=== PATIENT | female | born 1970 | race African-American/Black ===

== ENCOUNTER 2016-07-11 12:39 | Emergency (ER) | payer OTHER ==
[~2016-07-11] VITALS: Ht 177.8 cm; Wt 78.0 kg
[~2016-07-11 12:39] MED LIST: DIFLUCAN150 MG PO; FLAGYL500 MG PO; KEFLEX500 MG PO; MOTRIN800 MG PO; NOHOMEMEDS; PEPCID40 MG PO; PREDNISONE50 MG PO; TERAZOL 3 CREAM20 GM VG; Tylenol Regular Stre PO; ZYRTEC10 M2 PO; cholesterol med; diabetes med
[2016-07-11] MEDS ORDERED: MOTRIN600 MG PO (16:09)
[2016-07-11 16:46] VITALS: BP 142/80
== END 2016-07-11 16:47 | disposition home or self-care (01) ==
LOC: EME 12:39 → EXP 12:39
DX: S46.912A Strain of unspecified muscle, fascia and tendon at shoulder and upper arm level, left arm, initial encounter (principal); W00.0XXA Fall on same level due to ice and snow, initial encounter; Y93.01 Activity, walking, marching and hiking; E11.9 Type 2 diabetes mellitus without complications; E78.00 Pure hypercholesterolemia, unspecified
CPT/HCPCS: 73020; 73030; 99281; 99283

== ENCOUNTER → 2017-05-24 | Emergency (ER) | payer OTHER ==
[~2017-05-24] VITALS: Ht 147.3 cm; Wt 75.3 kg
[~2017-05-24] MED LIST changes: +MOTRIN600 MG PO; +NORCO 5/3251 TABLET PO; +VOLTAREN 1% GE100 GM TP
[2017-05-24 16:43] VITALS: BP 129/77
== END | disposition home or self-care (01) ==
LOC: EME 13:48
DX: M25.512 Pain in left shoulder (principal); Z98.890 Other specified postprocedural states
CPT/HCPCS: 73030; 99281; 99284

== ENCOUNTER → 2017-05-29 | Outpatient (CLI) | payer OTHER | END | disposition home or self-care (01) | LOC: CDC 14:28 | DX: Z01.810 Encounter for preprocedural cardiovascular examination (principal); S46.012D Strain of muscle(s) and tendon(s) of the rotator cuff of left shoulder, subsequent encounter; M25.512 Pain in left shoulder; M75.02 Adhesive capsulitis of left shoulder | CPT/HCPCS: 93000 ==

== ENCOUNTER 2018-01-05 13:09 | Emergency (ER) | payer OTHER ==
[~2018-01-05] VITALS: Ht 134.6 cm; Wt 72.7 kg
[2018-01-05 13:59] LABS: HEMATOCRIT 34.3 % (36.0-46.0); HEMOGLOBIN 12.6 G/DL (11.9-15.5); MCH 32.4 PG (29.0-34.0); MCHC 36.7 G/DL (30.0-36.0); MCV 88.2 FL (83-99); PLATELET COUNT 193 K/uL (156-360); RBC DIS.WIDTH-CV 11.9 % (11.8-14.6); RED BLOOD COUNT 3.89 M/uL (3.80-5.20); WHITE BLOOD COUNT 10.6 K/uL (4.1-10.2)
[2018-01-05 14:10] LABS: CHLORIDE 103 mEq/L (99-109); POTASSIUM 3.9 mEq/L (3.7-5.4); SODIUM 133 mEq/L (136-147)
[2018-01-05 14:12] LABS: GLUCOSE 124 mg/dL (70-99)
[2018-01-05 14:16] LABS: CREATININE 0.8 mg/dL (0.6-1.3); GFR ESTIMATE (CALCULATED) > 59 mL/min/
[2018-01-05 14:17] LABS: UREA NITROGEN (BUN) 8 mg/dL (9-23)
[2018-01-05 15:32] VITALS: BP 128/62
== END 2018-01-05 15:34 | disposition home or self-care (01) ==
LOC: EME 13:09
PROVIDERS: Nurse Practitioner Family
DX: E86.0 Dehydration (principal); E11.9 Type 2 diabetes mellitus without complications; E78.5 Hyperlipidemia, unspecified; G43.909 Migraine, unspecified, not intractable, without status migrainosus; Z91.018 Allergy to other foods
CPT/HCPCS: 80048; 85027; 99281; 99284; J7030

== ENCOUNTER 2018-01-30 22:27 | Emergency (ER) | payer OTHER ==
[~2018-01-30] VITALS: Ht 134.6 cm; Wt 73.8 kg
[2018-01-30 23:01] LABS: BASOPHIL (%) 0.3 % (0-1); EOSINOPHIL (%) 1.3 % (0-5); EOSINOPHIL COUNT 0.1 K/uL (0-0.3); HEMOGLOBIN 12.3 G/DL (11.9-15.5); IMMATURE GRANULOCYTE (%) 0.1 % (0.0-0.7); LYMPHOCYTE (%) 35.9 % (15-42); LYMPHOCYTE COUNT 2.5 K/uL (1.0-2.8); MCH 31.7 PG (29.0-34.0); MCHC 36.2 G/DL (30.0-36.0); MCV 87.6 FL (83-99); MONOCYTE (%) 7.8 % (3-12); MONOCYTE COUNT 0.6 K/uL (0-0.8); NEUTROPHIL (%) 54.6 % (45-76); NEUTROPHIL COUNT 3.8 K/uL (1.8-6.4); PLATELET COUNT 241 K/uL (156-360); RBC DIS.WIDTH-CV 12.2 % (11.8-14.6); RBC DIS.WIDTH-SD 39.4 % (39-53); RED BLOOD COUNT 3.88 M/uL (3.80-5.20)
[2018-01-30 23:13] LABS: CHLORIDE 105 mEq/L (99-109); POTASSIUM 3.6 mEq/L (3.7-5.4); SODIUM 136 mEq/L (136-147)
[2018-01-30 23:14] LABS: GLUCOSE 167 mg/dL (70-99)
[2018-01-30 23:18] LABS: CREATININE 0.9 mg/dL (0.6-1.3); GFR ESTIMATE (CALCULATED) > 59 mL/min/
[2018-01-30 23:19] LABS: UREA NITROGEN (BUN) 9 mg/dL (9-23)
[2018-01-31 00:01] LABS: APPEARANCE CLEAR ((CLEAR)); BILIRUBIN NEGATIVE; BLOOD SMALL; COLOR STRAW ((YELLOW)); GLUCOSE (STRIP) NEGATIVE; KETONES NEGATIVE; LEUKOCYTES NEGATIVE; NITRITE NEGATIVE; PROTEIN (STRIP) NEGATIVE; SPECIFIC GRAVITY 1.011 (1.000-1.030); UROBILINOGEN 0.2 MG/DL (0.2-1.0)
[2018-01-31 00:07] LABS: BACTERIA NONE SEEN /HPF; EPITHELIAL CELLS RARE /HPF; MUCUS TRACE /LPF; RED BLOOD CELLS 0-5 /HPF (0-5); UCUL ADDED? NO; WHITE BLOOD CELLS 0-5 /HPF (0-5)
[2018-01-31 00:31] VITALS: BP 144/87
== END 2018-01-31 00:33 | disposition home or self-care (01) ==
LOC: EME 22:27
PROVIDERS: Emergency Medicine
DX: O20.0 Threatened abortion (principal); Z3A.00 Weeks of gestation of pregnancy not specified
CPT/HCPCS: 76801; 80048; 81003; 84702; 85025; 86900; 86901; 99281; 99283